=== PATIENT | female | born 1970 | race Two or more races ===

== ENCOUNTER 2016-08-23 18:26 | Emergency (ER) | payer SELFPAY ==
[~2016-08-23] VITALS: Ht 160 cm; Wt 83.9 kg
[2016-08-23] MEDS ORDERED: FENTANYL PF 100 MCG/2 ML VIAL. IV PRN (18:45)
[2016-08-23] MEDS ORDERED: ASPIRIN 81 MG TAB.CHEW PO ONE (18:45)
[2016-08-23 18:58] LABS: BASO # 0.1 x10^3/uL (0.0-0.2); BASO % 1 % (0-3); EOS % 1 % (0-3); HEMATOCRIT 40.1 % (36.0-47.0); HEMOGLOBIN 13.4 g/dL (12.0-15.5); LYMPH # 2.7 x10^3/uL (1.0-4.8); LYMPH % 32 % (24-48); MEAN CORPUSCULAR HEMOGLOBIN 29 pg (25-35); MEAN CORPUSCULAR HGB CONC 33 g/dL (31-37); MEAN CORPUSCULAR VOLUME 87 fL (79-100); MONO % 9 % (0-9); NEUT % 58 % (31-73); PLATELET COUNT 181 x10^3/uL (140-400); RED BLOOD COUNT 4.61 x10^6/uL (3.50-5.40); RED CELL DISTRIBUTION WIDTH 13.1 % (11.5-14.5); WHITE BLOOD COUNT 8.6 x10^3/uL (4.0-11.0)
[2016-08-23 19:12] LABS: CALCIUM 9.7 mg/dL (8.5-10.1); CREATININE 0.9 mg/dL (0.6-1.0); GFR 68.3; POTASSIUM 3.8 mmol/L (3.5-5.1)
[2016-08-23 19:16] LABS: ALBUMIN 4.1 g/dL (3.4-5.0); TOTAL BILIRUBIN 0.3 mg/dL (0.2-1.0); TOTAL PROTEIN 8.3 g/dL (6.4-8.2)
[2016-08-23 19:21] LABS: PROTHROMBIN TIME PATIENT 12.7 SEC (11.7-14.0)
[2016-08-23] MEDS ORDERED: CONTRAST GIVEN MC PRN (20:45)
[2016-08-23] MEDS ORDERED: IOHEXOL 300 MG/ML 75 ML VIAL IV ONE (20:45)
--- NOTE | 2016-08-23 21:28 | RAD ---
PROCEDURE CT angiogram of the chest with intravenous contrast. HISTORY Left-sided chest pain beginning previous night. Shortness of air. TECHNIQUE After administration of intravenous contrast, 75 mL Omnipaque 300 , CT pulmonary angiogram was performed. Axial 2D reconstructions were obtained. Coronal 3D MIPS were obtained. Exposure: One or more of the following individualized dose reduction techniques were utilized for this examination: 1. Automated exposure control. 2. Adjustment of the mA and/or kV according to patient size. 3. Use of iterative reconstruction technique. COMPARISON None. FINDINGS There is adequate opacification of pulmonary arteries. There is no evidence of pulmonary embolism. Left thyroid lobe demonstrates 2.8 centimeter low-density nodule, incompletely visualized. Trachea and mainstem bronchi appear patent. No mediastinal lymphadenopathy is seen. Thoracic aorta is without evidence of dissection. Heart and pericardium are unremarkable. No pneumothorax or pleural effusion is seen. No acute airspace disease is identified. Images of the upper abdomen demonstrate cholecystectomy clips. Fatty liver disease is seen. IMPRESSION 1. No evidence of pulmonary embolism. No acute abnormality identified in chest. 2. Left thyroid nodule measuring at least 2.8 centimeters, incompletely visualized. Electronically signed by: Asa Seth MD (Aug 23, 2016 21:27:22)
--- NOTE | 2016-08-23 23:29 | ED.ADGEN ---
Past Medical History Past Medical History: High Cholesterol Past Surgical History: No Surgical History Alcohol Use: None Drug Use: None Adult General Chief Complaint Chief Complaint: CHEST PAIN HPI HPI Patient is a 45 year old woman, history of hyper cholesterolemia, Hebrew- speaking primarily, who presents to the emergency department with a complaint of chest pain that woke her from sleep around 2:30 in the morning, she describes a pressure in the chest, with pain that radiates into the left arm, and some tingling in the fingers. No weakness, no focal numbness. Patient states that she has felt nauseous as well, denies any vomiting, but has felt slightly lightheaded, no vertiginous type symptoms. Patient states she has had pain in her left leg, intermittent aching for the past month, but denies any new swelling or injuries. No history of DVT or PE. Mild shortness of breath with this chest pain. It is worse with deep inspiration. Has not taken any medications prior to coming to the ED. Patient has been occurring on and off since about 2:30 this morning. Patient currently states the pain is about an 8 of 10. Does radiate to the back into the arm as stated, no other areas of radiation, no other symptoms, no recent injuries sick contacts or previous symptoms. Patient has not previously had a cardiac evaluation. Translation is assisted by patient's daughter at bedside of the patient's request. Review of Systems Review of Systems Constitutional: Denies fever or chills. [] Eyes: Denies change in visual acuity. [] HENT: Denies nasal congestion or sore throat. [] Respiratory: Denies cough or shortness of breath. [] Cardiovascular: Left and central chest pain, no edema. Worse with motion, deep inspiration. GI: Denies abdominal pain, nausea, vomiting, bloody stools or diarrhea. [] : Denies dysuria. [] Musculoskeletal: Denies back pain or joint pain. [] Integument: Denies rash. [] Neurologic: Denies headache, focal weakness or sensory changes. [] Endocrine: Denies polyuria or polydipsia. [] Lymphatic: Denies swollen glands. [] Psychiatric: Denies depression or anxiety. [] Current Medications Current Medications Current Medications Medications (Trade) Dose Ordered Sig/Demario Start Time Stop Time Status Last Admin Dose Admin Aspirin (Children'S Aspirin) 324 mg 1X ONCE 08/23/16 18:45 2/14/17 18:57 DC 08/23/16 19:21 324 MG Fentanyl Citrate (Fentanyl 2ml Vial) 25 mcg PRN Q15MIN PRN 08/23/16 18:45 08/24/16 18:44 08/23/16 19:22 25 MCG Info (Do NOT chart on this entry -- for MONITORING) 1 each PRN DAILY PRN 08/23/16 20:45 08/25/16 20:44 Iohexol (Omnipaque 300 Mg/ml) 75 ml 1X ONCE 08/23/16 20:45 08/23/16 20:46 DC 08/23/16 21:05 75 ML Allergies Allergies Allergies Coded Allergies Type Severity Reaction Last Updated Verified No Known Drug Allergies 08/23/16 No Physical Exam Physical Exam Constitutional: Well developed, well nourished, no acute distress, mildly anxious, non-toxic appearance. [] HENT: Normocephalic, atraumatic, bilateral external ears normal, oropharynx moist, no oral exudates, nose normal. [] Eyes: PERRLA, EOMI, conjunctiva normal, no discharge. [] Neck: Normal range of motion, no tenderness, supple, no stridor. [] Cardiovascular:Heart rate regular rhythm, no murmur, S1, S2, rubs or gallops. [] Lungs & Thorax: Bilateral breath sounds clear to auscultation, no wheezing, rhonchi, rales. Positive for reproducible chest wall tenderness of the middle and anterior left chest wall, no crepitus, no rashes lesions or other maladies identified. [] Abdomen: Bowel sounds normal, soft, no tenderness, no rebound, rigidity, no guarding no masses, no pulsatile masses. [] Skin: Warm, dry, no erythema, no rash. [] Back: No tenderness, no CVA tenderness. [] Extremities: No tenderness, no cyanosis, no clubbing, ROM intact, no edema. [ Negative Homans sign. Patient complains of pain in the lower leg, there is no discrepancy in size or in appearance between the 2.] Neurologic: Alert and oriented X 3, normal motor function, normal sensory function, no focal deficits noted. [] Psychologic: Affect normal, judgement normal, mood normal. [] Current Patient Data Vital Signs Vital Signs Date Time Temp Pulse Resp B/P Pulse Ox O2 Delivery O2 Flow Rate FiO2 08/23/16 21:27 73 122/71 97 Room Air 08/23/16 19:22 16 08/23/16 18:35 98.0 98.0 Lab Values Laboratory Tests Test 08/23/16 18:45 08/23/16 18:56 08/23/16 22:42 White Blood Count 8.6x10^3/uL (4.0-11.0) Red Blood Count 4.61x10^6/uL (3.50-5.40) Hemoglobin 13.4g/dL (12.0-15.5) Hematocrit 40.1% (36.0-47.0) Mean Corpuscular Volume 87fL (79-100) Mean Corpuscular Hemoglobin 29pg (25-35) Mean Corpuscular Hemoglobin Concent 33g/dL (31-37) Red Cell Distribution Width 13.1% (11.5-14.5) Platelet Count 181x10^3/uL (140-400) Neutrophils (%) (Auto) 58% (31-73) Lymphocytes (%) (Auto) 32% (24-48) Monocytes (%) (Auto) 9% (0-9) Eosinophils (%) (Auto) 1% (0-3) Basophils (%) (Auto) 1% (0-3) Neutrophils # (Auto) 4.9x10^3uL (1.8-7.7) Lymphocytes # (Auto) 2.7x10^3/uL (1.0-4.8) Monocytes # (Auto) 0.8x10^3/uL (0.0-1.1) Eosinophils # (Auto) 0.1x10^3/uL (0.0-0.7) Basophils # (Auto) 0.1x10^3/uL (0.0-0.2) Prothrombin Time 12.7SEC (11.7-14.0) Prothrombin Time INR 1.0 (0.8-1.1) PTT 29SEC (24-38) Sodium Level 142mmol/L (136-145) Potassium Level 3.8mmol/L (3.5-5.1) Chloride Level 104mmol/L (98-107) Carbon Dioxide Level 24mmol/L (21-32) Anion Gap 14 (6-14) Blood Urea Nitrogen 11mg/dL (7-20) Creatinine 0.9mg/dL (0.6-1.0) Estimated GFR (Cockcroft-Gault) 68.3 BUN/Creatinine Ratio 12 (6-20) Glucose Level 131mg/dL (70-99) H Calcium Level 9.7mg/dL (8.5-10.1) Total Bilirubin 0.3mg/dL (0.2-1.0) Aspartate Amino Transferase (AST) 22U/L (15-37) Alanine Aminotransferase (ALT) 44U/L (14-59) Alkaline Phosphatase 75U/L (46-116) Troponin I Quantitative < 0.017ng/mL (0.000-0.055) < 0.017ng/mL (0.000-0.055) AV-Efw-R-Type Natriuretic Peptide 17pg/mL (0-124) Total Protein 8.3g/dL (6.4-8.2) H Albumin 4.1g/dL (3.4-5.0) Albumin/Globulin Ratio 1.0 (1.0-1.7) Lipase 255U/L (73-393) POC Troponin I 0.00ng/ml (<0.08) Laboratory Tests 08/23/16 18:45 Laboratory Tests 08/23/16 18:45 EKG EKG EC: Sinus tachycardia, heart rate 105 bpm, upright axis, QTC of 445, VA 122, QRS of 84, no ST elevations or depressions, mild baseline artifact noted. Aside from sinus tachycardia, no other abnormalities identified. As interpreted by me. EC: Sinus rhythm, heart rate 71 bpm, upright axis, QTC of 437, VA 132, QRS of 84, no ST elevations or depressions, no evidence of acute ST abnormalities. Sinus tachycardia is resolved. As interpreted by me. [] Radiology/Procedures Radiology/Procedures Chest x-ray: One view: Normal cardiopulmonary silhouette, no infiltrates, no effusions, no pneumothorax, no soft tissue or bony abnormalities identified. As interpreted by me. [] [facility] [address] [place] [address] IMAGING REPORT Signed PATIENT: RICHAR TY I ACCOUNT: [id number] : 1970 LOCATION: ER AGE: 45 SEX: F EXAM STATUS: REG ER ORD. PHYSICIAN: KUSHAL ROY DO REASON: left side chest pain since last night; short of air PROCEDURE: CTA CHEST PROCEDURE CT angiogram of the chest with intravenous contrast. HISTORY Left-sided chest pain beginning previous night. Shortness of air. TECHNIQUE After administration of intravenous contrast, 75 mL Omnipaque 300 , CT pulmonary angiogram was performed. Axial 2D reconstructions were obtained. Coronal 3D MIPS were obtained. Exposure: One or more of the following individualized dose reduction techniques were utilized for this examination: 1. Automated exposure control. 2. Adjustment of the mA and/or kV according to patient size. 3. Use of iterative reconstruction technique. COMPARISON None. FINDINGS There is adequate opacification of pulmonary arteries. There is no evidence of pulmonary embolism. Left thyroid lobe demonstrates 2.8 centimeter low-density nodule, incompletely visualized. Trachea and mainstem bronchi appear patent. No mediastinal lymphadenopathy is seen. Thoracic aorta is without evidence of dissection. Heart and pericardium are unremarkable. No pneumothorax or pleural effusion is seen. No acute airspace disease is identified. Images of the upper abdomen demonstrate cholecystectomy clips. Fatty liver disease is seen. IMPRESSION 1. No evidence of pulmonary embolism. No acute abnormality identified in chest. 2. Left thyroid nodule measuring at least 2.8 centimeters, incompletely visualized. Electronically signed by: Asa Rees MD (Aug 23, 2016 21:27:22) DICTATED and SIGNED BY: ASA REES MD DATE: 08/23/162126 CC: KUSHAL ROY DO; UNKNOWN PCP NAME ~ Course & Med Decision Making Course & Med Decision Making Pertinent Labs and Imaging studies reviewed. (See chart for details) Patient received stat troponin the emergency department to the chest pain and complaints, along with ECG which not reveal any concerning findings. Due to the patient's respirophasic type pain, CT of the chest was obtained, was negative for PE or other concerning normality. On reevaluation patient states that she is still having some mild pain, mostly in her upper chest and arm with deep inspiration, I did discuss admission to the hospital for further evaluation versus follow-up with a cruise director. After discussion, repeat ECG was ordered, which was unremarkable with sinus tachycardia resolved, a repeat troponin was ordered, which was also negative. No indication that this is an acute cardiac or other concerning cause at this time, however I was clear with the patient that we were unable to fully rule out any concerning findings in the emergency department. Patient states her pain is resolved at this time, she states that she would prefer to be discharged home, to follow-up with Dr. Nelson of cardiology as an outpatient, and return to the ED if any concerning symptoms develop. We did discuss concerning symptoms that prompt return as stated, patient discharged home in stable condition with her daughter with plan as above. Dragon Disclaimer Dragon Disclaimer This electronic medical record was generated, in whole or in part, using a voice recognition dictation system. Departure Impression: Primary Impression: Chest pain Disposition: 01 HOME, SELF-CARE Condition: IMPROVED Problem Qualifiers Primary Impression: Chest pain Chest pain type: unspecified Qualified Code: R07.9 - Chest pain, unspecified KUSHAL ROY DO Aug 23, 2016 23:29
[2016-08-24 00:56] VITALS: BP 112/61
--- NOTE | 2016-08-24 08:20 | RAD ---
Portable chest, 08/23/2016: History: Chest pain, tachycardia The heart size and pulmonary vascularity are normal. No pulmonary infiltrates are seen. There is no evidence of pleural fluid. IMPRESSION: No acute cardiopulmonary abnormality is detected.
--- NOTE | 2016-08-24 08:28 | EKG ---
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
--- NOTE | 2016-08-24 08:28 | EKG ---
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
== END 2016-08-24 00:15 | disposition home or self-care (01) ==
LOC: ER 18:26
DX: R07.9 Chest pain, unspecified (principal); R20.2 Paresthesia of skin; R11.0 Nausea; E78.00 Pure hypercholesterolemia, unspecified
CPT/HCPCS: 36415; 71010; 71275; 80053; 83690; 83880; 84484; 85027; 85610; 85730; 93005; 96374; 99285; J3010; Q9967